=== PATIENT | male | born 1980 | race Caucasian/White ===

== ENCOUNTER 2016-09-14 11:05 | Emergency (ER) | payer MEDICAID ==
--- NOTE | 2016-09-14 11:28 | ERPHSYRPT ---
- History of Present Illness Time Seen by Provider: 09/14/16 11:19 Source: patient Exam Limitations: no limitations Patient Subjective Stated Complaint: pt co pain to middle and lower back since yesterday, no injury. pt has hx of back problems. motrin last night Triage Nursing Assessment: pt walked in, gaurding back when moves, resp easy, skin w/d.no edema noted, Physician History: The patient is a 35-year-old male with his complaining of having a little bit of back pain yesterday but severe back pain when he woke up today. It hurts when he moves to get up. He is able to urinate and defecate without problems. He played with his 3-year-old quite a bit yesterday and thinks maybe that caused the back to flareup. He has a history of intermittent back pain. Timing/Duration: today Method of Injury: bending, lifting Quality: sharp, aching Back Pain Location: T-spine, lumbar spine, paraspinous muscles Severity of Pain-Max: severe Severity of Pain-Current: severe Modifying Factors: Improves With: nothing Associated Symptoms: denies symptoms Previous symptoms: same symptoms as today Allergies/Adverse Reactions: No Known Drug Allergies Allergy (Verified 09/14/16 11:15) Home Medications: No Home Meds 1 [facility] UD 08/25/15 [History] Hx Tetanus, Diphtheria Vaccination/Date Given: No Hx Influenza Vaccination/Date Given: No Hx Pneumococcal Vaccination/Date Given: No Immunizations Up to Date: Yes - Review of Systems Constitutional: No Fever, No Chills Eyes: No Symptoms Ears, Nose, & Throat: No Symptoms Respiratory: No Cough, No Dyspnea Cardiac: No Chest Pain, No Edema, No Syncope Abdominal/Gastrointestinal: No Abdominal Pain, No Nausea, No Vomiting, No Diarrhea Genitourinary Symptoms: No Dysuria Musculoskeletal: Back Pain, No Neck Pain Skin: No Rash Neurological: No Dizziness, No Focal Weakness, No Sensory Changes Psychological: No Symptoms Endocrine: No Symptoms Hematologic/Lymphatic: No Symptoms Immunological/Allergic: No Symptoms All Other Systems: Reviewed and Negative - Past Medical History Pertinent Past Medical History: Yes Musculoskeletal History: Other Other Medical History: back problems, gout - Past Surgical History Past Surgical History: No - Social History Smoking Status: Current every day smoker Exposure to second hand smoke: Yes Drug Use: none Patient Lives Alone: No - Nursing Vital Signs Nursing Vital Signs: Initial Vital Signs Temperature 97.4 F Temperature Source Oral Pulse Rate 89 Respiratory Rate 16 Blood Pressure [Left Arm] 134/65 Pain Intensity [Back] 8 Pain Intensity 8 - Physical Exam General Appearance: moderate distress Eye Exam: PERRL/EOMI, eyes nml inspection Ears, Nose, Throat Exam: normal ENT inspection Neck Exam: normal inspection, non-tender, supple, full range of motion, No meningismus, No midline tenderness Respiratory Exam: normal breath sounds, lungs clear, No respiratory distress Cardiovascular Exam: regular rate/rhythm, normal heart sounds Gastrointestinal Exam: soft, No tenderness, No mass Rectal Exam: not done Back Exam: decreased range of motion, muscle spasm (Examination of the back reveals exquisite tenderness to the paraspinous muscles in the mid back region. 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 You were given Toradol 60 mg IM and Decadron 10 mg IM in the ER. Take naproxen 500 mg twice a day as needed and take Flexeril 10 mg every 8 hours as needed. Apply ice to the area as needed. If the condition persists, either return to the emergency room or see your family doctor. Prescriptions: Cyclobenzaprine HCl [Flexeril] 10 mg PO Q8H PRN PRN #10 tablet PRN Reason: Pain Naproxen 500 mg PO BID PRN #30 tablet.
[2016-09-14] MEDS ORDERED: TORAdol 30 mg Injection IM ONE (11:35)
[2016-09-14] MEDS ORDERED: DECADRON 10MG INJ. IM ONE (11:36)
[2016-09-14] MEDS ORDERED: TORAdol 30 mg Injection ONE (11:40)
[2016-09-14] MEDS ORDERED: DECADRON 10MG INJ. ONE (11:40)
[2016-09-14 12:09] VITALS: BP 132/69; PULSE 81; O2SAT 98
== END 2016-09-14 12:09 | disposition home or self-care (01) ==
LOC: ED 11:05
DX: M62.830 Muscle spasm of back (principal); M54.5 Low back pain; M54.9 Dorsalgia, unspecified
CPT/HCPCS: 96372; 99283; J1100; J1885

== ENCOUNTER 2016-10-27 13:51 | Emergency (ER) | payer OTHER ==
[2016-10-27 14:00] VITALS: BP 139/86
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
[2016-10-27 14:28] VITALS: PULSE 76; O2SAT 98
== END 2016-10-27 14:37 | disposition home or self-care (01) ==
LOC: ED 13:51
DX: K43.9 Ventral hernia without obstruction or gangrene (principal); J40 Bronchitis, not specified as acute or chronic; R10.31 Right lower quadrant pain; X50.0XXA Overexertion from strenuous movement or load, initial encounter; Y93.89 Activity, other specified
CPT/HCPCS: 99281

== ENCOUNTER 2018-12-29 10:06 | Emergency (ER) | payer MEDICAID, OTHER ==
[2018-12-29 10:32] VITALS: BP 118/78; PULSE 78; O2SAT 99
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
[2018-12-29] MEDS ORDERED: MORPHINE SULFATE 4 MG INJ ONE (11:46)
[2018-12-29 11:48] LABS: Appearance CLEAR (CLEAR); Bacteria FEW /HPF (NEGATIVE); Bilirubin NEGATIVE (NEGATIVE); Blood NEGATIVE Ery/ul (0-5); Glucose NEGATIVE (NEGATIVE); Ketones NEGATIVE (NEGATIVE); Leukocyte Esterase NEGATIVE (NEGATIVE); Mucus SLIGHT /HPF (NEGATIVE); Nitrite NEGATIVE (NEGATIVE); Protein,Urine Dip NEGATIVE (Negative); RBC 0-2 /HPF (0-2); Specific Gravity 1.021 (1.005-1.025); Urobilinogen NEGATIVE mg/dL (0-1)
[2018-12-29] MEDS: MORPHINE SULFATE 4 MG INJ IM ONE ×2 (11:48→11:50)
[2018-12-29 12:16] LABS: Cocaine,Urine NEGATIVE (NEGATIVE); Opiate,Urine NEGATIVE (NEGATIVE); PCP,Urine NEGATIVE (NEGATIVE); THC,Urine POSITIVE (NEGATIVE)
[2018-12-29 12:20] LABS: Benzodiazepine,Urine NEGATIVE (NEGATIVE); Methadone,Urine NEGATIVE (NEGATIVE)
[2018-12-29 12:41] LABS: Amphetamine,Urine NEGATIVE (NEGATIVE); Barbiturate,Urine NEGATIVE (NEGATIVE)
== END 2018-12-29 12:44 | disposition home or self-care (01) ==
LOC: ED 10:06
DX: S06.0X9A Concussion with loss of consciousness of unspecified duration, initial encounter (principal); S01.112A Laceration without foreign body of left eyelid and periocular area, initial encounter; M25.512 Pain in left shoulder; Y04.0XXA Assault by unarmed brawl or fight, initial encounter
CPT/HCPCS: 12013; 70450; 73030; 80307; 81001; 99284; J2270

== ENCOUNTER 2022-01-15 10:53 | Emergency (ER) | payer SELFPAY ==
[2022-01-15 11:11] VITALS: BP 143/88; PULSE 83; O2SAT 94
[2022-01-15] MEDS ORDERED: TORAdol 30 mg Injection IM ONE (11:18)
[2022-01-15] MEDS ORDERED: TORAdol 30 mg Injection ONE (11:22)
[2022-01-15] MEDS ORDERED: HYDROCODONE-ACETAMIN 10-325 MG PO STA (11:52)
[2022-01-15 13:10] LABS: ANION GAP 14.6 MEQ/L (5-15); BLOOD UREA NITROGEN 13 mg/dL (9-20); CHLORIDE 105 mmol/L (98-107); Carbon Dioxide 26 mmol/L (22-30); Creatinine 1 0.83 mg/dL (0.66-1.25); EST GLOMERULAR FILTRATION RATE > 60.0 ML/MIN; Glucose 104 mg/dL (74-106); Potassium 4.5 mmol/L (3.5-5.1); SODIUM 141 mmol/L (137-145)
--- NOTE | 2022-01-15 13:22 | ERPHSYRPT ---
- History of Present Illness Time Seen by Provider: 01/15/22 11:22 Source: patient Exam Limitations: no limitations Patient Subjective Stated Complaint: pt here for left foot pain since yesterday, no injury, pt thinks he is having a gout flare up Triage Nursing Assessment: pt alert, walked in with a limp. no swelling noted. Physician History: 41-year-old with history of gout not taking any medication for quite some time as patient was incarcerated presented in the ER with left big toe swelling and pain gradually worsening for the last couple of days with moderate to severe sharp stabbing pain especially with weightbearing/movements and better with resting. Denies any fall or trauma. Patient reports he has not been taking any dietary precautions. Method of Injury: unknown Occurred: days ago (2) Quality: sharpness, stabbing Severity of Pain-Max: severe Severity of Pain-Current: moderate Lower Extremities Pain: foot: left, 1st toe: left Modifying Factors: Improves With: immobilization. Worsens With: movement Associated Symptoms: none Allergies/Adverse Reactions: No Known Drug Allergies Allergy (Verified 01/15/22 11:07) Hx Tetanus, Diphtheria Vaccination/Date Given: No Hx Influenza Vaccination/Date Given: No Hx Pneumococcal Vaccination/Date Given: No Immunizations Up to Date: Yes Travel Risk - International Travel Have you traveled outside of the country in past 3 weeks: No - Coronavirus Screening Are you exhibiting any of the following symptoms?: No Close contact with a COVID-19 positive Pt in past 14-21 Days: No - Vaccine Status Have you recieved a Covid-19 vaccination: No Inspector General: Unknown - Vaccination Dates Dates if Unknown: ? - Review of Systems Constitutional: No Symptoms Eyes: No Symptoms Respiratory: No Symptoms Cardiac: No Symptoms Genitourinary Symptoms: No Symptoms Musculoskeletal: Joint Redness Skin: No Symptoms Neurological: No Symptoms Psychological: No Symptoms Endocrine: No Symptoms Hematologic/Lymphatic: No Symptoms Immunological/Allergic: No Symptoms - Past Medical History Pertinent Past Medical History: Yes Musculoskeletal History: Other Other Medical History: back problems, gout - Past Surgical History Past Surgical History: No - Social History Smoking Status: Current every day smoker How long have you smoked: YRS Exposure to second hand smoke: Yes Drug Use: marijuana Patient Lives Alone: No - Nursing Vital Signs Nursing Vital Signs: Initial Vital Signs Temperature 97.0 F 01/15/22 11:10 Pulse Rate 83 01/15/22 11:10 Respiratory Rate 18 01/15/22 11:10 Blood Pressure 143/88 01/15/22 11:10 O2 Sat by Pulse Oximetry 94 L 01/15/22 11:10 Pain Scale Pain Intensity 8 - Physical Exam General Appearance: no apparent distress, alert Neck Exam: normal inspection, full range of motion Cardiovascular/Respiratory Exam: normal breath sounds, regular rate/rhythm Back Exam: normal inspection, normal range of motion Ankle Exam: bilateral ankle: non-tender, normal inspection, normal range of motion, no evidence of injury Foot Exam: right foot: non-tender, normal inspection, normal range of motion, no evidence of injury, left foot: bone tenderness, limited range of motion (Rectal), pain, soft tissue tenderness, swelling (Big toe) Neuro/Tendon Exam: normal sensation, normal motor functions Mental Status Exam: alert, 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, cooperative Skin Exam: normal color SpO2 Interpretation: normal SpO2: 94 O2 Delivery: Room Air Ordered Tests: Medication Summary Discontinued Medications Generic Name Dose Route Start Last Admin Trade Name Chidi PRN Reason Stop Dose Admin Hydrocodone Bitart/Acetaminophen 1 tablet 01/15/22 11:52 01/15/22 11:54 Hydrocodone/Acetamin 10-325 Mg Tablet PO 01/15/22 11:53 1 tablet ONCE STA Administration Ketorolac Tromethamine 30 mg 01/15/22 11:18 01/15/22 11:26 Ketorolac Tromethamine 30 Mg/Ml Inj IM 01/15/22 11:19 30 mg STAT ONE Administration Ketorolac Tromethamine Confirm 01/15/22 11:22 Ketorolac Tromethamine 30 Mg/Ml Inj Administered 01/15/22 11:23 Dose 30 mg .ROUTE .[facility]-MED ONE Lab/Rad Data: Laboratory Result Diagrams 01/15/22 11:40 Laboratory Results 01/15/22 01/15/22 Range/Units 11:40 11:40 Sodium 141 (137-145) mmol/L Potassium 4.5 (3.5-5.1) mmol/L Chloride 105 (98-107) mmol/L Carbon Dioxide 26 (22-30) mmol/L Anion Gap 14.6 (5-15) MEQ/L BUN 13 (9-20) mg/dL Creatinine 0.83 (0.66-1.25) mg/dL Estimated GFR > 60.0 ML/MIN Glucose 104 (74-106) mg/dL Uric Acid 10.8 H (3.5-7.2) mg/dL Calcium 9.0 (8.4-10.2) mg/dL - Progress Progress: improved Progress Note: 01/15/22 13:19 Given symptomatic treatment for pain. Feeling better on reevaluation. Presentation and lab finding consistent with acute gout flareup. We will continue with NSAIDs and allopurinol to go home. Outpatient follow-up recommended. Counseled pt/family regarding: lab results, diagnosis, need for follow-up, rad results - Departure Departure Disposition: Home Clinical Impression: Acute gout Condition: Stable Critical Care Time: No Referrals: HELLEN MORRIS [Primary Care Provider] - Follow Up with PCP/3 days Instructions: Gout (DC) Additional Instructions: Follow dietary instructions for gout. Avoid exertional activities. Follow-up with primary care for reevaluation. Return to ER for worsening pain swelling etc. Prescriptions: Indomethacin 50 mg PO TID PRN 10 Days #30 cap PRN Reason: Pain Allopurinol 100 mg [Zyloprim 100 mg] 100 mg PO DAILY #30 tablet
--- NOTE | 2022-01-15 16:38 | XRAY ---
Exam: 3 views of the left foot from 01/15/2022. Comparison: 3 views of the left foot from 02/04/2010. Indication: 41-year-old male with left foot pain for a couple days; history of gout; no history of injury. Findings: AP, oblique, and lateral radiographs of the left foot were obtained. There is a suggestion of a small juxta-articular erosion at the lateral margin of the distal left first metatarsal head. Adjacent to this there is a 5 mm x 2.7 mm calcification. This appears to be new from 02/04/2010. No soft tissue masses are seen in the adjacent region. The left first MTP joint space is unremarkable. There is no fracture or dislocation. No radiopaque soft tissue foreign body is seen. Minimal plantar and mild posterior left calcaneal spurs are seen. There is a normal plantar arch. No other bone or joint abnormality is seen. Impression: 1. Compared to 02/04/2010, there is a new juxta-articular erosion with overhanging edges and an adjacent 5 mm x 2.7 mm calcification at the lateral margin of the distal left first metatarsal head. This is consistent with gout. No other suspicious findings are seen at the first MTP joint level or elsewhere within the left foot. 2. Minimal plantar and mild posterior left calcaneal spurring is seen. 3. No acute fracture or other significant bone or joint abnormality of the left foot is seen.
== END 2022-01-15 13:40 | disposition home or self-care (01) ==
LOC: ED 10:53
DX: M10.9 Gout, unspecified (principal); M79.675 Pain in left toe(s); Z72.0 Tobacco use; Z28.310 Unvaccinated for COVID-19
CPT/HCPCS: 36415; 73630; 80048; 84550; 96372; 99283; J1885; A9270-GY

== ENCOUNTER 2023-03-17 00:32 | Emergency (ER) | payer SELFPAY ==
[2023-03-17 00:38] VITALS: TEMP 98
[2023-03-17 03:32] VITALS: RESP 18
[2023-03-17 03:33] VITALS: BP 99/60; PULSE 66; O2SAT 94
[2023-03-17 03:33] LABS: Group A Strep NOT DETECTED (NEGATIVE); INFLUENZA A NEGATIVE (NEGATIVE); INFLUENZA B NEGATIVE (NEGATIVE); SARS-CoV-2 Xpert Express NEGATIVE (NEGATIVE)
[2023-03-17 03:35] LABS: RESPIRATORY SYNCTIAL VIRUS POSITIVE (NEGATIVE)
--- NOTE | 2023-03-17 03:56 | ERPHSYRPT ---
- History of Present Illness Time Seen by Provider: 03/17/23 00:50 Source: patient Exam Limitations: no limitations Patient Subjective Stated Complaint: fever, cough, achy and tired Triage Nursing Assessment: pt ambulated into ER without diff, spouse at bedside. Pt c/o fever x2 days, cough, achy and tiredness since x2 days. Lungs clear, heart tones reg. Pt is requesting a work note. Pt states, "My has RSV, I'm sure I have that". Physician History: Patient is a 42-year-old male presents to the emergency department for evaluation of cough congestion body aches. Symptoms started 2 days ago. Symptoms have been progressive. Patient states his was recently diagnosed with RSV. Patient believes he has the same. No associated chest pain or shortness of breath. No nausea vomiting or diaphoresis. No rash. No active fever. No neck pain no photophobia no meningeal signs symptoms are mild to moderate in intensity. No specific worsening or improving factors. Patient requesting a work note. Patient otherwise feels well. He voices no other complaints or concerns at this time. Portions of this note were created with voice recognition technology. There may be grammatical, spelling, punctuation or sound alike errors Timing/Duration: day(s) (2 days) Severity: moderate Modifying Factors: Improves With: nothing Associated Symptoms: denies symptoms, No shortness of breath, No headaches, No syncope, No weakness Allergies/Adverse Reactions: No Known Drug Allergies Allergy (Verified 03/17/23 03:39) Home Medications: Allopurinol 100 mg [Zyloprim 100 mg] 100 mg PO DAILY PRN 03/17/23 [History] Hx Tetanus, Diphtheria Vaccination/Date Given: Yes Hx Influenza Vaccination/Date Given: No Hx Pneumococcal Vaccination/Date Given: No Immunizations Up to Date: No Travel Risk - International Travel Have you traveled outside of the country in past 3 weeks: No - Coronavirus Screening Are you exhibiting any of the following symptoms?: Yes Symptoms: Fever, Cough: New Onset, Headaches/Body Aches/Fatigue Close contact with a COVID-19 positive Pt in past 14-21 Days: No - Vaccine Status Have you recieved a Covid-19 vaccination: No 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 - Review of Systems Constitutional: No Symptoms, No Fever, No Chills Eyes: No Symptoms Ears, Nose, & Throat: No Symptoms Respiratory: No Symptoms, No Cough, No Dyspnea Cardiac: No Symptoms, No Chest Pain, No Edema, No Syncope Abdominal/Gastrointestinal: No Symptoms, No Abdominal Pain, No Nausea, No Vomiting, No Diarrhea Genitourinary Symptoms: No Symptoms, No Dysuria Musculoskeletal: No Symptoms, No Back Pain, No Neck Pain Skin: No Symptoms, No Rash Neurological: No Symptoms, No Dizziness, No Focal Weakness, No Sensory Changes Psychological: No Symptoms Endocrine: No Symptoms Hematologic/Lymphatic: No Symptoms Immunological/Allergic: No Symptoms All Other Systems: Reviewed and Negative - Past Medical History Pertinent Past Medical History: Yes Musculoskeletal History: Other Other Medical History: back problems, gout - Past Surgical History Past Surgical History: No - Social History Smoking Status: Current every day smoker How long have you smoked: 20 yrs Exposure to second hand smoke: Yes Drug Use: none Patient Lives Alone: No - Nursing Vital Signs Nursing Vital Signs: Initial Vital Signs Respiratory Rate 20 03/17/23 00:33 O2 Sat by Pulse Oximetry 96 03/17/23 00:33 Pain Scale Pain Intensity 5 - Physical Exam General Appearance: no apparent distress, alert Eye Exam: PERRL/EOMI, eyes nml inspection Ears, Nose, Throat Exam: normal ENT inspection, TMs normal, pharynx normal, moist mucous membranes, other (Nasal congestion) Neck Exam: normal inspection, non-tender, supple, full range of motion Respiratory Exam: normal breath sounds, lungs clear, airway intact, No respiratory distress Cardiovascular Exam: regular rate/rhythm, normal heart sounds, normal peripheral pulses Gastrointestinal/Abdomen Exam: soft, normal bowel sounds, No tenderness, No mass Back Exam: normal inspection, normal range of motion, No CVA tenderness, No vertebral tenderness Extremity Exam: normal inspection, normal range of motion, pelvis stable Neurologic Exam: alert, 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, cooperative, normal mood/affect, sensation nml, No motor deficits Skin Exam: normal color, warm, dry, No rash Lymphatic Exam: No adenopathy SpO2 Interpretation: normal SpO2: 94 O2 Delivery: Room Air - Course Nursing assessment & vital signs reviewed: Yes Lab/Rad Data: Laboratory Results 03/17/23 Range/Units 00:45 Influenza Type A Ag NEGATIVE (NEGATIVE) Influenza Type B Ag NEGATIVE (NEGATIVE) RSV (PCR) POSITIVE (NEGATIVE) SARS-CoV-2 (PCR) NEGATIVE (NEGATIVE) Group A Strep Antibody NOT DETECTED (NEGATIVE) - Progress Progress: unchanged Progress Note: 42-year-old male presents to our ED for evaluation of cough congestion body aches. Physical exam significant for nasal congestion. Lungs clear. Patient conversant well-appearing no distress. Workup entailed COVID RSV flu and strep. RSV positive. Supportive care only. Work note provided. Patient voiced no other complaints or concerns at this time. Portions of this note were created with voice recognition technology. There may be grammatical, spelling, punctuation or sound alike errors Complexity of problems addressed is moderate acute complicated No critical care time Complexity of data reviewed and analyzed is moderate. Test ordered test reviewed. Results analyzed and correlated clinically. Risk of complication and or risk of morbidity/mortality of patient management is low. Supportive care only. No antibiotics indicated. Work note provided. Vital stable. Time spent to discharge patient is approximately 10 minutes. Plan of care established for shared decision making. No social determinants of health present impede follow-up. Portions of this note were created with voice recognition technology. There may be grammatical, spelling, punctuation or sound alike errors 03/17/23 03:56 Counseled pt/family regarding: lab results, diagnosis, need for follow-up - Departure Departure Disposition: Home Clinical Impression: RSV infection, Viral syndrome, URI (upper respiratory infection) Condition: Stable Critical Care Time: No Referrals: MANSI GROVER MD [Primary Care Provider] - Follow up/PCP as directed Additional Instructions: Discharge/Care Plan LUBA CASIANO was seen on 03/17/23 in the Emergency Room. The patient was counseled regarding Diagnosis,Lab results, Imaging studies, need for follow up and when to return to the Emergency Room. Prescriptions given: Discharge Note I have spoken with the patient and/or caregivers. I have explained the patient's condition, diagnosis and treatment plan based on the information available to me at this time. I have answered the patient's and/or caregiver's questions and addressed any concerns. The patient and/or caregivers have as good understanding of the patient's diagnosis, condition and treatment plan as can be expected at this point. The vital signs have been stable. The patient's condition is stable and appropriate for discharge from the emergency department. The patient will pursue further outpatient evaluation with the primary care physician or other designated or consulting physician as outlined in the discharge instructions. The patient and/or caregivers are agreeable to this plan of care and follow-up instructions have been explained in detail. The patient and/or caregivers have received these instruction. The patient/and or caregivers are aware that any significant change in condition or worsening of symptoms should prompt an immediate return to this or the closest emergency department or call 911.
== END 2023-03-17 01:55 | disposition home or self-care (01) ==
LOC: ED 00:32
DX: J06.9 Acute upper respiratory infection, unspecified (principal); B97.4 Respiratory syncytial virus as the cause of diseases classified elsewhere; R05.1 Acute cough; M79.10 Myalgia, unspecified site; Z79.899 Other long term (current) drug therapy; Z28.310 Unvaccinated for COVID-19; Z72.0 Tobacco use
CPT/HCPCS: 0241U; 87651; 99282

== ENCOUNTER 2023-04-04 10:07 | Emergency (ER) | payer SELFPAY ==
[2023-04-04 10:26] VITALS: PULSE 89; RESP 18; TEMP 96.7; O2SAT 97
[2023-04-04] MEDS ORDERED: DELTASONE 20 MG PO ONE (10:57)
[2023-04-04] MEDS ORDERED: TORAdol 30 mg Injection IM ONE (10:57)
--- NOTE | 2023-04-04 11:00 | ERPHSYRPT ---
- History of Present Illness Time Seen by Provider: 04/04/23 10:55 Source: patient Patient Subjective Stated Complaint: Right foot/ankle pain Triage Nursing Assessment: Patient brought into ED per w/c and transferred to bed per self. Patient A+O X 3. Patient's skin pink, warm and dry. Patient complains of right foot/ ankle pain since that has gotten worse. Patie nt states it it hurts to bear weight. Patient denies injury or trauma to right foot/ankle. Right foot/ankle noted to be red, warm and swollen. Pulses noted. Patient has hx of gout. 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 The patient presented to the emergency room complaining of pain and swelling to his right lateral ankle that started last Wednesday, 3 days from today. The pain has been getting progressively worse, this morning he could not bear weight on his right lower extremity. He has been taking ibuprofen 600 mg, with some relief. He is denying any fever or chills no other joint pain. The patient does not recall any injuries to his right lower extremity Allergies/Adverse Reactions: No Known Drug Allergies Allergy (Verified 04/04/23 10:14) Hx Tetanus, Diphtheria Vaccination/Date Given: Yes Hx Influenza Vaccination/Date Given: No Hx Pneumococcal Vaccination/Date Given: No Immunizations Up to Date: Yes Travel Risk - International Travel Have you traveled outside of the country in past 3 weeks: No - Coronavirus Screening Are you exhibiting any of the following symptoms?: No Close contact with a COVID-19 positive Pt in past 14-21 Days: No - Vaccine Status Have you recieved a Covid-19 vaccination: No 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 - Review of Systems Constitutional: No Fever, No Chills Eyes: No Symptoms Ears, Nose, & Throat: No Symptoms Respiratory: No Cough, No Dyspnea Cardiac: No Chest Pain, No Edema, No Syncope Abdominal/Gastrointestinal: No Abdominal Pain, No Nausea, No Vomiting, No Diarrhea Genitourinary Symptoms: No Dysuria Musculoskeletal: Joint Pain, Joint Swelling, No Back Pain, No Neck Pain Skin: No Rash Neurological: No Dizziness, No Focal Weakness, No Sensory Changes Psychological: No Symptoms Endocrine: No Symptoms All Other Systems: Reviewed and Negative - Past Medical History Pertinent Past Medical History: Yes Musculoskeletal History: Other Other Medical History: back problems, gout - Past Surgical History Past Surgical History: No - Social History Smoking Status: Current every day smoker How long have you smoked: 20 yrs Exposure to second hand smoke: Yes Drug Use: none Patient Lives Alone: No - Nursing Vital Signs Nursing Vital Signs: Initial Vital Signs Temperature 96.7 F 04/04/23 10:15 Pulse Rate 89 04/04/23 10:15 Respiratory Rate 18 04/04/23 10:15 Blood Pressure 163/108 04/04/23 10:15 O2 Sat by Pulse Oximetry 97 04/04/23 10:15 Pain Scale Pain Intensity 7 - Physical Exam General Appearance: alert Eyes, Ears, Nose, Throat Exam: moist mucous membranes Neck Exam: non-tender, supple Cardiovascular/Respiratory Exam: chest non-tender, normal breath sounds, regular rate/rhythm, no respiratory distress Gastrointestinal/Abdominal Exam: non-tender, guarding Back Exam: normal inspection, No vertebral tenderness Ankle Exam: right ankle: bone tenderness (Bilateral malleoli), limited range of motion, pain, soft tissue tenderness, swelling (Right lateral malleolus), left ankle: non-tender, normal inspection, normal range of motion, bilateral ankle: no evidence of injury Neuro/Tendon Exam: normal sensation, normal motor functions Mental Status Exam: alert, 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, cooperative Skin Exam: normal color, warm, dry SpO2: 97 - Course Nursing assessment & vital signs reviewed: Yes Ordered Tests: Active Orders 24 hr Category Date Time Status Crutches STAT Care 04/04/23 12:08 Active ANKLE (2V) Stat Exams 04/04/23 10:55 Taken BMP Stat Lab 04/04/23 10:54 Completed CBC W DIFF Stat Lab 04/04/23 10:54 Completed Uric Acid Stat Lab 04/04/23 10:54 Completed Medication Summary Discontinued Medications Generic Name Dose Route Start Last Admin Trade Name Freq PRN Reason Stop Dose Admin Famotidine 20 mg 04/04/23 11:02 04/04/23 11:17 Famotidine 20 Mg Tablet PO 04/04/23 11:03 20 mg STAT ONE Administration Famotidine Confirm 04/04/23 11:12 Famotidine 20 Mg Tablet Administered 04/04/23 11:13 Dose 20 mg .ROUTE .STK-MED ONE Ketorolac Tromethamine 60 mg 04/04/23 10:57 04/04/23 11:20 Ketorolac Tromethamine 30 Mg/Ml Inj IM 04/04/23 10:58 60 mg STAT ONE Administration Ketorolac Tromethamine Confirm 04/04/23 11:12 Ketorolac Tromethamine 30 Mg/Ml Inj Administered 04/04/23 11:13 Dose 60 mg .ROUTE .STK-MED ONE Prednisone 60 mg 04/04/23 10:57 04/04/23 11:18 Prednisone 20 Mg Tablet PO 04/04/23 10:58 60 mg STAT ONE Administration Prednisone Confirm 04/04/23 11:12 Prednisone 20 Mg Tablet Administered 04/04/23 11:13 Dose 60 mg .ROUTE .STK-MED ONE Lab/Rad Data: Laboratory Result Diagrams 04/04/23 10:54 04/04/23 10:54 Laboratory Results 04/04/23 04/04/23 04/04/23 Range/Units 10:54 10:54 10:54 WBC 9.5 (4.0-10.5) x10^3/uL RBC 5.35 (4.1-5.6) x10^6/uL Hgb 15.4 (12.5-18.0) g/dL Hct 47.5 (42-50) % MCV 88.8 (78-100) fL MCH 28.8 (26-32) pg MCHC 32.4 (32-36) g/dL RDW 13.5 (11.5-14.0) % Plt Count 221 (150-450) x10^3/uL MPV 12.0 H (7.5-11.0) fL Gran % 68.0 H (36.0-66.0) % Immature Gran % (Auto) 0.4 (0.00-0.4) % Nucleat RBC Rel Count 0.0 (0.00-0.1) % Eos # (Auto) 0.18 (0-0.5) x10^3/uL Immature Gran # (Auto) 0.04 H (0.00-0.03) x10^3u/L Absolute Lymphs (auto) 2.01 (1.0-4.6) x10^3/uL Absolute Monos (auto) 0.79 (0.0-1.3) x10^3/uL Absolute Nucleated RBC 0.00 (0.00-0.01) x10^3u/L Lymphocytes % 21.1 L (24.0-44.0) % Monocytes % 8.3 (0.0-12.0) % Eosinophils % 1.9 (0.00-5.0) % Basophils % 0.3 (0.0-0.4) % Absolute Granulocytes 6.46 (1.4-6.9) x10^3/uL Basophils # 0.03 (0-0.4) x10^3/uL Sodium 138 (137-145) mmol/L Potassium 3.8 (3.5-5.1) mmol/L Chloride 105 (98-107) mmol/L Carbon Dioxide 25 (22-30) mmol/L Anion Gap 11.4 (5-15) MEQ/L BUN 14 (9-20) mg/dL Creatinine 0.85 (0.66-1.25) mg/dL Estimated GFR 111.3 ML/MIN Glucose 87 (74-106) mg/dL Uric Acid 9.3 H (3.5-7.2) mg/dL Calcium 8.7 (8.4-10.2) mg/dL - Progress Progress Note: 04/04/23 11:01 42 years old male with 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 The patient is presenting to the emergency room complaining of pain and swelling to his right lateral malleolus for 3 days since last Wednesday. The pain is getting progressively worse, this morning he could not bear weight on his right lower extremity. No history of fall or injuries or trauma. Emergency room course and medical decision making. For the pain the patient be given Toradol 60 mg IM, prednisone 60 mg oral dose, Pepcid 20 g oral dose. Check CBC, BMP, uric acid, x-ray of the ankle. 04/04/23 12:04 The patient's workup, x-ray revealed calcification at the distal right tibia and talus bone, nothing acute. Uric acid elevated 9.3. Normal white count 9.5, hemoglobin 15.4. BUN 41 and creatinine 0.85. The patient just got the Toradol shot, the prednisone and Pepcid he is still having that severe pain in his right ankle. He will be given a pair of crutches, since he is unable to bear any weight on his right lower extremity. He will be discharged home on indomethacin 50 mg 3 times a day as needed and Uloric tablets. The patient does not want to wait and leave he is told to rest, elevate his right lower extremity avoid weightbearing For the pain he can take indomethacin 50 mg capsule 3 times a day as needed. He is given a prescription for Uloric 40 mg daily. He needs to follow-up with his family physician in 2 to 3 days. 04/04/23 12:34 04/04/23 12:40 - Departure Departure Disposition: Home Clinical Impression: Acute right ankle pain, Gout attack Condition: Stable Critical Care Time: No Referrals: MANSI GROVER MD [Primary Care Provider] - Follow up/PCP as directed Additional Instructions: Avoid weightbearing, use the crutches. Indomethacin 50 mg capsule 3 times a day as needed for the pain. Uloric tablets daily. Follow-up with family physician in 2 to 3 days. Follow-up as needed for any worsening symptoms. Prescriptions: Indomethacin 50 mg RC TID PRN 10 Days #30 supp PRN Reason: Pain Febuxostat [Uloric] 40 mg PO DAILY #30 tablet
[2023-04-04] MEDS ORDERED: Pepcid 20 MG PO ONE (11:02)
[2023-04-04] MEDS ORDERED: TORAdol 30 mg Injection ONE (11:12)
[2023-04-04] MEDS ORDERED: DELTASONE 20 MG ONE (11:12)
[2023-04-04] MEDS ORDERED: Pepcid 20 MG ONE (11:12)
[2023-04-04 11:29] LABS: Absolute Neutrophil Ct (ANC) 6.46 x10^3/uL (1.4-6.9); BASOPHIL % 0.3 % (0.0-0.4); Basophil (Absolute #) 0.03 x10^3/uL (0-0.4); Eosinophil % 1.9 % (0.00-5.0); Eosinophil (Absolute #) 0.18 x10^3/uL (0-0.5); Hematocrit 47.5 % (42-50); Hemoglobin 15.4 g/dL (12.5-18.0); IMMATURE GRAN # 0.04 x10^3u/L (0.00-0.03); IMMATURE GRAN % 0.4 % (0.00-0.4); Lymphocyte (Absolute #) 2.01 x10^3/uL (1.0-4.6); Lymphocytes % 21.1 % (24.0-44.0); Mean Cell Volume 88.8 fL (78-100); Mean Corpuscular Hemoglobin 28.8 pg (26-32); Mean Corpuscular Hgb Concent. 32.4 g/dL (32-36); Monocyte (Absolute #) 0.79 x10^3/uL (0.0-1.3); Monocytes % 8.3 % (0.0-12.0); Platelet Count 221 x10^3/uL (150-450); Red Blood Count 5.35 x10^6/uL (4.1-5.6); Red Cell Distribution Width 13.5 % (11.5-14.0); White Blood Count 9.5 x10^3/uL (4.0-10.5)
[2023-04-04 11:34] LABS: ANION GAP 11.4 MEQ/L (5-15); Calcium 8.7 mg/dL (8.4-10.2); Creatinine 1 0.85 mg/dL (0.66-1.25); EST GLOMERULAR FILTRATION RATE 111.3 ML/MIN; Potassium 3.8 mmol/L (3.5-5.1)
[2023-04-04 11:53] VITALS: BP 147/98
--- NOTE | 2023-04-04 19:43 | XRAY ---
Indication: Pain 3 days. No known injury. Comparison: None 2 view right ankle demonstrates tiny spurring tip medial malleolus and plantar calcaneus. Tiny well-circumscribed heterotopic ossification posterior to distal tibia either degenerative or sequela old injury. No other bony, articular, or soft tissue abnormalities.
== END 2023-04-04 12:50 | disposition home or self-care (01) ==
LOC: ED 10:07
DX: M25.571 Pain in right ankle and joints of right foot (principal); M10.9 Gout, unspecified; Z72.0 Tobacco use
CPT/HCPCS: 36415; 73600; 80048; 84550; 85025; 96372; 99284; J1885; A9270-GY